=== PATIENT | female | born 1990 | race Caucasian/White ===

== ENCOUNTER 2016-03-26 19:22 | Emergency (ER) | payer BC ==
[~2016-03-26] VITALS: Ht 162.6 cm; Wt 121.4 kg
[2016-03-26 19:35] VITALS: TEMP 36.9; Ht 162.6 cm; Wt 121.4 kg
[2016-03-26] MEDS ORDERED: CETI10TA10 PO (19:57)
[2016-03-26] MEDS ORDERED: FLUD0.1T10 PO (19:57)
[2016-03-26] MEDS ORDERED: COLC0.6T54 PO (19:57)
[2016-03-26] MEDS ORDERED: BCPILLS PO (19:57)
[2016-03-26] MEDS ORDERED: PENT400T2 PO (19:57)
[2016-03-26] MEDS ORDERED: DEXAMETHASONE SOD INJ 10 MG/ML VIAL IV ONE (20:15)
[2016-03-26 22:00] LABS: HEMATOCRIT 42.1 % (37-47); MEAN CELL VOLUME 92.9 fL (80-100); MEAN CORPUSCULAR HGB CONC 34.4 g/dl (32-36); MEAN PLATELET VOLUME 10.4 fL (7.4-10.4); PLATELET COUNT 303 K/uL (130-400); RED BLOOD COUNT 4.53 M/uL (4.2-5.4); WHITE BLOOD COUNT 12.12 K/uL (4.8-10.8)
[2016-03-26 22:14] LABS: BUN/CREATININE RATIO 7.3 (10-20); CALCIUM 9.2 mg/dl (8.5-10.1); CREATININE 0.82 mg/dl (0.60-1.20); POTASSIUM 3.5 mmol/L (3.5-5.1)
[2016-03-26] MEDS ORDERED: GADAVIST IV PRN (23:30)
[2016-03-27] MEDS ORDERED: METH4PAK PO (00:06)
[2016-03-27] MEDS ORDERED: OXYC1TAB3 PO (00:06)
[2016-03-27 00:17] LABS: C-REACTIVE PROTEIN 0.73 mg/dl (0-0.29)
[2016-03-27 00:19] VITALS: BP 129/89; PULSE 103; O2SAT 97
[2016-03-27] MEDS ORDERED: OXYCODONE IR HOME PACK PO ONE (00:30)
--- NOTE | 2016-03-27 00:37 | EMERGENCY ROOM VISIT NOTE ---
History Report prepared by Louann: Theresa Renteria Under the Supervision of: Dr. Kirby Matt M.D. First contact with patient: 19:58 Chief Complaint: LEG PAIN,LEG INJURY Stated Complaint: NUMBNESS/PAIN LEFT LEG/FOOT History of Present Illness The patient is a 26 year old female who presents to the Emergency Room with complaints of worsening left foot numbness beginning 3 days prior to arrival. The patient states that she woke up 3 days ago with numbness to the top of her left foot. She states that since the numbness has moved up her left leg. She also notes a shooting pain down her left leg that has developed. Patient has been having weakness intermittently in her left foot although not as severe as today. She notes she has had sciatica. The patient denies recent trauma, headache, diabetes, cough, congestion, cold symptoms, urinary symptoms, chance of , or numbness to other extremities. 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 Review of Systems See HPI for pertinent positives & negatives. A total of 10 systems reviewed and were otherwise negative. Past Medical & Surgical Medical Problems: (1) Behcet's syndrome (2) Polycystic ovarian syndrome (3) POTS (postural orthostatic tachycardia syndrome) Family History FH: heart disease Social History Smoking Status: Never Smoker Smokeless Tobacco Use: No Alcohol Use: occasionally Housing Status: lives alone Occupation Status: employed Current/Historical Medications Scheduled Control Pills ( Control Pills), 1 TAB PO DAILY Cetirizine Hcl (Zyrtec), 10 MG PO DAILY Colchicine (Colchicine), 0.6 MG PO BID Fludrocortisone Acetate (Florinef), 0.1 MG PO DAILY Methylprednisolone (Medrol Dosepak), 1 PKT PO UD Pentoxifylline (Trental), 400 MG PO DAILY Scheduled PRN Oxycodone Ir (Roxicodone Ir), 1-2 TAB PO Q4H PRN for Pain Allergies Coded Allergies: Penicillins (Unverified Adverse Reaction, Severe, HEAD TO TOE HIVES, ) Latex (Unverified Adverse Reaction, Intermediate, SKIN IRRITATION, 03/26/16) Naproxen (Unverified Adverse Reaction, Intermediate, HIVES, 03/26/16) Sulfa Antibiotics (Unverified Adverse Reaction, Intermediate, HEAD TO TOE HIVES FEVER 105, 03/26/16) Physical Exam Vital Signs Date Time Temp Pulse Resp B/P Pulse Ox O2 Delivery O2 Flow Rate FiO2 03/27/16 00:19 103 18 129/89 97 Room Air 03/26/16 22:34 91 20 128/86 97 Room Air 03/26/16 19:35 36.9 95 20 154/100 99 Room Air Physical Exam GENERAL: Patient is in no acute distress. HEENT: No acute trauma, normocephalic atraumatic, mucous membranes moist, no nasal congestion, no scleral icterus. NECK: No stridor, no adenopathy, no meningismus, trachea is midline. LUNGS: Clear to auscultation bilaterally, no wheeze, no rhonchi, breath sounds equal. HEART: Without murmurs gallops or rubs, regular rate and rhythm. ABDOMEN: Soft, nontender, bowel sounds positive, no hernias, no peritonitis. EXTREMITIES: No cyanosis or edema, full range of motion of all the joints without pain or difficulty, no signs for acute trauma. Strong left dorsalis pedis pulse. NEUROLOGIC: No upper extremity weakness or deficit. No facial droop or speech slur. Equal reflex in both lower extremities at patella and Achilles. Left foot plantar flexion weak compared to right, left foot dorsi flexion weak compared to right, great toe strength is equal. SKIN: No rash, no jaundice, no diaphoresis. Medical Decision & Procedures ER Provider Diagnostic Interpretation: MRI results as stated below per my review and radiologist interpretation: MRI L SPINE: Comparison: None available. No fracture or malalignment. No discitis or osteomyelitis. Central canal and foramina are patent. Conus medullaris terminates at mid L1 level demonstrate normal caliber and signal. No mass or fluid collections. Epidural lipomatosis is noted at L5/S1 extending into the sacral canal. Paraspinous soft tissues are unremarkable. No disc bulge or protrusions. No pathologically enhancing lesions. Radiologist: Oliver Malagon MD. Study ready at 23:26 Laboratory Results 03/26/16 21:30 03/26/16 21:30 Test 03/26/16 21:30 Red Blood Count 4.53 M/uL (4.2-5.4) Mean Corpuscular Volume 92.9 fL (80-100) Mean Corpuscular Hemoglobin 32.0 pg (25-34) Mean Corpuscular Hemoglobin Concent 34.4 g/dl (32-36) RDW Standard Deviation 46.8 fL (36.4-46.3) RDW Coefficient of Variation 13.7 % (11.5-14.5) Mean Platelet Volume 10.4 fL (7.4-10.4) Erythrocyte Sedimentation Rate 11 mm/hr (0-21) Anion Gap 12.0 mmol/L (3-11) Est Creatinine Clear Calc Drug Dose 131.3 ml/min Estimated GFR () 112.9 Estimated GFR (Non- 97.4 BUN/Creatinine Ratio 7.3 (10-20) Calcium Level 9.2 mg/dl (8.5-10.1) C-Reactive Protein 0.73 mg/dl (0-0.29) Lyme Disease IgG Antibody NEG (NEG) Lyme Disease IgM Antibody NEG (NEG) Laboratory results reviewed by me. Medications Administered Medications (Trade) Dose Ordered Sig/Ngoc Route Start Time Stop Time Status Last Admin Dose Admin Dexamethasone Sodium Phosphate (Decadron Inj) 10 mg NOW ONCE IV 03/26/16 20:15 03/26/16 20:16 DC 03/26/16 20:51 10 MG Oxycodone HCl (Roxicodone Immediate Rel 5MG Home Pack) 1 homepack UD ONCE PO 03/27/16 00:30 03/27/16 00:31 DC 03/27/16 00:27 1 HOMEPACK ED Course 1958: The patient was evaluated in room B11. A complete history and physical exam was performed. 2015: Decadron Inj 10 mg IV. 2330: Gadavist 12 mmol IV. 2352: I discussed the results with the patient. She is doing well and walking around the room. 2358: I spoke with Dr. Garcia - Neurology about the patient. He would like a Lyme test and SED rate to be done then she can be discharged home. 0009: Reevaluated the patient. Discussed results and discharge instructions: she verbalized understanding and agreement. The patient is ready for discharge. Medical Decision The patient is a 26 year old female who presents to the ED with complaints of left foot numbness. Differential diagnoses considered include nerve impingement , sciatica, lumbar disc disease, Guillain-[place] syndrome, electrolyte imbalance , anemia, stroke. There is a very mild leukocytosis, this could be consistent with infection or just the stress of her situation. No worrisome anemia. Sedimentation rate was not elevated, CRP was very very mildly elevated. No significant electrolyte abnormality or kidney failure. Lyme disease testing was negative. MRI of the lumbar spine did not show any herniated disc, there was no abscess or acute pathology which would explain her presentation. The patient presents with some distal left leg numbness. The entire leg is not numb, the arm and face are not involved. The patient does have some weakness with my testing in the left leg with her plantar and dorsiflexion. Reflexes are equal and intact in both lower extremities. She can walk without difficulty. The patient received IV Decadron and IV saline. I did discuss her case with neurology. The patient will be seen in the outpatient office. She is being discharged with some oxycodone for pain, a Medrol Dosepak. The patient was encouraged to return for escalating or worsening symptoms. At this point, this presentation seems consistent with a peripheral nerve impingement. [place] Drug Monitoring Program Search Results: patient reviewed within database, no issues identified Consults Time Called: [id number] Consulting Physician: Dr. Garcia - Neurology Returned Call: [phone] Jose Laws Neurology about the patient. He would like a Lyme test and SED rate to be done then she can be discharged home. Impression Primary Impression: Left leg weakness Additional Impression: Left leg pain Scribe Attestation The scribe's documentation has been prepared under my direction and personally reviewed by me in its entirety. I confirm that the note above accurately reflects all work, treatment, procedures, and medical decision making performed by me. Departure Information Dispostion Home / Self-Care Prescriptions Oxycodone Ir (Roxicodone Ir) 5 Mg Tab 1-2 TAB PO Q4H Y for Pain, #10 TAB Prov: Kirby Matt M.D. 03/27/16 Methylprednisolone (MEDROL DOSEPAK) 4 Mg Frederic 1 PKT PO UD for 6 Days, #1 PKT Prov: Kirby Matt M.D. 03/27/16 Referrals No Doctor, Assigned (PCP) Forms HOME CARE DOCUMENTATION FORM, IMPORTANT VISIT INFORMATION, Work Instructions Patient Instructions My [facility] Additional Instructions medrol dose pack as directed oxy ir 1-2 tab every 4 hours for severe pain call neurology (Dr. Garcia) for appt--call in this am MRI today was ok return for worsening symptoms or progressing symptoms Problem Qualifiers
[2016-03-27 01:14] LABS: LYME DISEASE AB IGG NEG (NEG); LYME DISEASE AB IGM NEG (NEG)
--- NOTE | 2016-03-27 06:53 | DIAGNOSTIC IMAGING REPORT ---
MRI OF THE LUMBAR SPINE WITH AND WITHOUT CONTRAST CLINICAL HISTORY: Left leg weak, numb, left leg pain. COMPARISON STUDY: None. TECHNIQUE: Utilizing a 1.5 Kiki magnet and dedicated coil, multiplanar, multiecho imaging of the lumbar spine was performed before and after uneventful IV administration of 12 mL of Gadavist. FINDINGS: For purposes of numbering on this exam, the L5-S1 disc space is assigned to axial image 27 of 30. Alignment of the lumbar spine is anatomic. Vertebral body heights are maintained. There is no intracanalicular mass or fluid collection. The conus terminates at the L1-2 level. There is no abnormality of the paravertebral soft tissues. Note is made of prominent epidural fat at the L4 and L5 levels as well as within the sacral canal. There is no abnormal enhancement within the lumbar canal. L1-2: The central canal and neural foramen are patent. L2-3: The central canal and neural foramen are patent. L3-4: The central canal and neural foramen are patent. L4-5: The central canal and neural foramen are patent. L5-S1: There is extensive epidural fat. There is no disc herniation. The central canal is patent. IMPRESSION: 1. No acute abnormality of the lumbar spine by MRI. 2. No disc herniation. Patent neural foramen. 3. Prominent epidural fat at the L4 and L5 levels as well as within the sacral canal suggestive of epidural lipomatosis. Electronically signed by: Ryan Coreas M.D. 03/27/2016 6:51 AM Dictated Date/Time: 03/27/2016 6:47 AM
== END 2016-03-27 00:29 | disposition home or self-care (01) ==
LOC: C.EDB 19:24
DX: M62.81 Muscle weakness (generalized) (principal); M79.605 Pain in left leg

== ENCOUNTER → 2017-01-23 | Day surgery (SDC) | payer BC ==
[2016-12-26 16:35] VITALS: Ht 162.6 cm; Wt 120.5 kg
[~2017-01-23] VITALS: Ht 162.6 cm; Wt 120.5 kg
[~2017-01-23] MED LIST: BCPILLS PO; CETI10TA10 PO; COLC0.6T54 PO; FLUD0.1T10 PO; GABA-113 PO; IOPAMIDOL INJ 61% 15 ML VIAL ONE; LIDOCAINE HCL 1% MPF 5 ML VIAL ONE; PENT400T2 PO; SODIUM CHLORIDE 0.9% INJ 10 ML VIAL ONE
--- NOTE | 2017-01-23 14:26 | History & Physical Bridge - SC ---
H&P Re-Evaluation Bridge Note: I have examined the patient, reviewed the History & Physical and in the interval since the performance of the History & Physical I have noted the following changes of clinical significance: No changes noted
[2017-01-23 14:56] VITALS: BP 127/85; PULSE 84; TEMP 36.7; O2SAT 99
--- NOTE | 2017-01-23 14:57 | Discharge Instructions ---
Discharge Instructions Date of Service Jan 23, 2017. Visit Reason for Visit: Lumbar Radiculopathy Discharge Discharge Diagnosis / Problem: left leg pain Discharge Goals Goal(s): Decrease discomfort, Improve function Activity Recommendations Activity Limitations: resume your previous activity Anesthesia . Post Anesthesia Instructions: If you have had General Anesthesia or IV Sedation: * Do not drive today. * Resume driving when surgeon permits. * Do not make important decisions or sign legal documents today. * Call surgeon for: 1. Temperature elevations greater than 101 degrees F. 2. Uncontrollable pain. 3. Excessive bleeding. 4. Persistent nausea and vomiting. 5. Medication intolerance (nausea, vomiting or rash). * For nausea and vomiting use only clear liquids such as: tea, soda, bouillon until nausea subsides, then gradually increase diet as tolerated. * If you have any concerns or questions, call your surgeon's office. If physician is unavailable and it is an emergency, call 911 or go to the nearest emergency room. . Diet Recommendations Recommended Home Diet: resume previous diet Procedures Procedures Performed: Lumbar Epidural Steroid Injection Pending Studies Studies pending at discharge: no Medical Emergencies . Who to Call and When: Medical Emergencies: If at any time you feel your situation is an emergency, please call 911 immediately. . Non-Emergent Contact Non-Emergency issues call your: Specialist . . "Provider Documentation" section prepared by Benson Bang. .
--- NOTE | 2017-01-23 15:52 | OPERATIVE REPORT ---
DATE OF OPERATION: 01/23/2017 PREOPERATIVE DIAGNOSIS: Epidural lipomatosis, left L5 radiculopathy. POSTOPERATIVE DIAGNOSIS: Same. PROCEDURE: Left paramedian L5-S1 intralaminar epidural steroid injection under fluoroscopic guidance. SURGEON: Dr. Benson Bang. INDICATIONS: The patient is a 26-year-old white female who was referred by Dr. Kenny Villeda to consider an epidural injection. She has L5 dermatomal pain down the left leg related to epidural lipomatosis. PHYSICAL EXAMINATION: GENERAL: Pleasant female seated comfortably. MUSCULOSKELETAL: Lumbar paraspinal muscles were palpated. She had some mild sensitivity to palpation on the left sciatic notch. She had sensation subjectively decreased in the left L5 dermatomal distribution. Negative seated straight leg raises. CONSENT: Verbal and written consent was obtained from the patient. Risks and benefits were reviewed. Risks include but are not limited to epidural abscess, epidural hematoma, allergic reaction, dural puncture. The patient wishes to proceed. PROCEDURE: The patient was taken back to the special procedures room of the [facility] where she was maintained in a prone position. Backside was cleansed with Betadine x3 and a dry sterile dressing was applied. Fluoroscope was used to identify the L5-S1 intralaminar space. Overlying skin on the left side was anesthetized with 4 mL of lidocaine 1% with a 25 gauge 1.5-inch needle. A 22 gauge 4-1/4 inch Tuohy needle was then directed down towards the intralaminar space. It was advanced under lateral fluoroscopic guidance and loss of resistance was noted at a depth of 9.5 cm. Isovue-300 contrast 1 mL was injected in which demonstrated epidural uptake pattern. She then underwent injection after negative aspiration of 40 mg of Depo-Medrol, 4 mL of preservative free sodium chloride very slowly as it was very sensitive and reproduced a familiar transient radicular sensation down the left leg. DISPOSITION: 1. The patient is taken out into the discharge recovery area where she will be discharged home once discharge criteria have been met. 2. Follow up in the [facility] office in 2-4 weeks. I attest to the content of the Intraoperative Record and any orders documented therein. Any exception s are noted below.
== END | disposition home or self-care (01) ==
LOC: X.SURG 13:32
PROVIDERS: ATTEND Physical Medicine & Rehabilitation
DX: E88.2 Lipomatosis, not elsewhere classified (principal); M54.16 Radiculopathy, lumbar region

== ENCOUNTER → 2017-09-19 | Outpatient (CLI) | payer BC ==
[~2017-09-19] MED LIST changes: -IOPAMIDOL INJ 61% 15 ML VIAL ONE; -LIDOCAINE HCL 1% MPF 5 ML VIAL ONE; -PENT400T2 PO; +PENT400T7 PO; -SODIUM CHLORIDE 0.9% INJ 10 ML VIAL ONE
--- NOTE | 2017-09-19 11:52 | DIAGNOSTIC IMAGING REPORT ---
LUMBAR SPINE 2 OR 3 VIEWS CLINICAL HISTORY: S/P ILIAC BONE GRAFT COMPARISON STUDY: 07/11/2017 FINDINGS: There is a mild scoliosis convex to the right. There are postsurgical changes of a discectomy and interbody fusion at the L5-S1 level. There are postsurgical changes of an L5 laminectomy. No fractures or subluxations are visualized. IMPRESSION: No change the preceding study. Postsurgical changes the L5-S1 level. Electronically signed by: Jose Matute M.D. 09/19/2017 11:51 AM Dictated Date/Time: 09/19/2017 11:49 AM
== END | disposition home or self-care (01) ==
LOC: C.RDSM 09:49
PROVIDERS: ATTEND Orthopaedic Surgery
DX: Z98.890 Other specified postprocedural states (principal)